=== PATIENT | male | born 1965 | race Caucasian/White ===

== ENCOUNTER 2018-08-06 20:57 | Emergency (ER) | payer OTHER ==
[2018-08-06 21:17] VITALS: BP 128/78
[2018-08-06] MEDS ORDERED: AZITHROMYCIN 250 MG TABLET PO STA (21:23)
--- NOTE | 2018-08-06 21:28 | ED Physician Documentation ---
History of Present Illness - Stated complaint Stated Complaint: ABD PX - Chief complaint Chief Complaint: Abd Pain - History obtained from History obtained from: Patient - History of Present Illness Timing: Today Pain level max: 0 Pain level now: 0 - Additonal information Additional information: states recent travel to [place] + for campylobacter. Treated with cipro 250mg PO BID x 5 days. Diarrhea has returned. No fevers. No blood. Mild abd cramping. Nothing makes it better or worse. Review of Systems Constitutional: denies: Fever, Chills Throat: denies: Sore throat Cardiac: denies: Chest pain / pressure Respiratory: denies: Cough GI: denies: Vomiting, Bloody / black stool Skin: denies: Rash Musculoskeletal: denies: Neck pain, Back pain Neurologic: denies: Headache PD PAST MEDICAL HISTORY - Past Medical History Past Medical History: Yes Cardiovascular: High cholesterol : Retention - Present Medications Home Medications: Ambulatory Orders Medication Instructions Recorded Confirmed Lisinopril 60 mg PO 07/29/18 07/29/18 Rosuvastatin Calcium [Crestor] 20 mg PO 07/29/18 Colchicine 0.6 mg PO 08/06/18 Fenofibrate [Fenoglide] 145 mg PO 08/06/18 Ipratropium [place] 15 ml NS 08/06/18 buPROPion [Wellbutrin Xl] 300 mg PO 08/06/18 - Allergies Allergies/Adverse Reactions: Allergies Allergy/AdvReac Type Severity Reaction Status Date / Time No Known Drug Allergies Allergy Verified 08/06/18 21:04 - Living Situation Living Arrangement: reports: At home - Social History Does the pt smoke?: No Smoking Status: Never smoker Does the pt have substance abuse?: No - Family History Family history: reports: Non contributory PD ED PE NORMAL - Vitals Vital signs reviewed: Yes - General General: Alert and oriented X 3, No acute distress - HEENT HEENT: Moist mucous membranes - Neck Neck: Supple, no meningeal sign - Cardiac Cardiac: RRR, Strong equal pulses - Respiratory Respiratory: No respiratory distress, Clear bilaterally - Abdomen Abdomen: Soft, Non tender, Non distended - Derm Derm: Warm and dry - Neuro Neuro: Alert and oriented X 3 - Psych Psych: Normal mood, Normal affect Results - Vitals Vitals: Vital Signs - 24 hr 08/06/18 21:01 Temperature 36.7 C Heart Rate 93 Respiratory 16 Rate Blood Pressure 128/78 O2 Saturation 97 Oxygen O2 Source Room air PD MEDICAL DECISION MAKING - ED course Complexity details: reviewed old records, considered differential, d/w patient ED course: 52-year-old male with Campylobacter positive diarrhea. Reviewed the drug of choice which appears to be azithromycin at this time. 1 g appears to be equally efficacious to 500 mg for 3 days. Discussed with the patient prefers the 1 g dose. This was given here and will follow up with his doctor as needed. Patient counseled regarding signs and symptoms for which I believe and urgent re-evaluation would be necessary. Patient with good understanding of and agreement to plan and is comfortable going home at this time This document was made in part using voice recognition software. While efforts are made to proofread this document, sound alike and grammatical errors may occur. Departure - Departure Disposition: 01 Home, Self Care Clinical Impression: Campylobacter diarrhea Condition: Good Instructions: Campylobacter Infec Follow-Up: Mahamed Hernandez MD [Primary Care Provider] - Within 1 week Comments: Return if you worsen. The single dose of 1 gram of azithromycin should treat the campylobacter diarrhea.
== END 2018-08-06 21:30 | disposition home or self-care (01) ==
LOC: ED 20:57
DX: A04.5 Campylobacter enteritis (principal); E78.00 Pure hypercholesterolemia, unspecified
CPT/HCPCS: 99283; A9270

== ENCOUNTER 2019-06-22 10:44 | Emergency (ER) | payer OTHER ==
[2019-06-22 10:56] VITALS: BP 144/77
--- NOTE | 2019-06-22 12:26 | ED Physician Documentation ---
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 Had onset of pain left ear upon surfacing and noted some blood from left ear when took hoodie off. Denies vertigo. 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.) Recently seen: Not recently seen Review of Systems Constitutional: denies: Fever, Chills Ears: reports: Loss of hearing, Ear pain (left ear) Nose: denies: Rhinorrhea / runny nose, Congestion, Sinus pressure / pain Throat: denies: Sore throat Neurologic: denies: Focal weakness, Numbness, Headache PD PAST MEDICAL HISTORY - Past Medical History Cardiovascular: Hypertension, High cholesterol Respiratory: None Neuro: None : Retention Musculoskeletal: Gout - Present Medications Home Medications: Ambulatory Orders Medication Instructions Recorded Confirmed Lisinopril 60 mg PO 07/29/18 07/29/18 Rosuvastatin Calcium [Crestor] 20 mg PO 07/29/18 Colchicine 0.6 mg PO 08/06/18 Fenofibrate [Fenoglide] 145 mg PO 08/06/18 Ipratropium [place] 15 ml NS 08/06/18 buPROPion [Wellbutrin Xl] 300 mg PO 08/06/18 Ciprofloxacin HCl 2 drops EACHEAR QID #1 bottle 06/22/19 Ibuprofen [Motrin] 600 mg PO TID PRN #25 tab 06/22/19 - Allergies Allergies/Adverse Reactions: Allergies Allergy/AdvReac Type Severity Reaction Status Date / Time No Known Drug Allergies Allergy Verified 08/06/18 21:04 - Social History Does the pt smoke?: No Smoking Status: Never smoker Does the pt have substance abuse?: No PD ED PE NORMAL - Vitals Vital signs reviewed: Yes - General General: Alert and oriented X 3, No acute distress, Well developed/nourished - HEENT HEENT: PERRL, EOMI (no nystagmus), Moist mucous membranes, Pharynx benign. No: Ears normal (right TM with mild blood behind TM but no perforation. The canal has mild erythema medially. No exudate. The left TM is ruptured centrally and toward 7 o'clock aspect. Canal with some erythema as well. No active bleeding. No FB noted. ) - Neck Neck: Supple, no meningeal sign, No adenopathy - Cardiac Cardiac: RRR, No murmur - Respiratory Respiratory: Clear bilaterally - Derm Derm: Normal color, Warm and dry Results - Vitals Vitals: Vital Signs - 24 hr 06/22/19 10:54 Temperature 36.8 C Heart Rate 73 Respiratory 20 Rate Blood Pressure 144/77 H O2 Saturation 99 Oxygen O2 Source Room air PD MEDICAL DECISION MAKING - ED course Complexity details: considered differential (ruptured TM from barotrauma. 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 Gave Cipro abx as was in ocean water, so concern for infectious possible. He has seen ENT in [place] with prior ruptured TM, and it is easy enough for him to get to appt on "the other side" and so he can call to f/u with ENT.), d/w patient Departure - Departure Disposition: 01 Home, Self Care Clinical Impression: Barotrauma due to diving Ruptured or perforated eardrum Qualifiers: Laterality: left Qualified Code(s): H72.92 - Unspecified perforation of tympanic membrane, left ear Condition: Stable Record reviewed to determine appropriate education?: Yes Instructions: ED Rupture Eardrum Traumatic Follow-Up: Mahamed Hernandez MD [Primary Care Provider] - Prescriptions: Ciprofloxacin HCl 2 drops EACHEAR QID #1 bottle Ibuprofen [Motrin] 600 mg PO TID PRN #25 tab PRN Reason: Pain Comments: Avoid water in the ear. Use the antibiotic drops in both ears 4 times a day for about a week. Use anti-inflammatory such as ibuprofen 3 times a day. To that add Tylenol if needed for pain. I wrote a work note for no underwater activity and no driving until cleared by ear nose and throat when they can see that your eardrum is fully healed. Other activity is okay. Forms: Activity restrictions Discharge Date/Time: 06/22/19 13:24
[2019-06-22] MEDS ORDERED: IBUPROFEN 600 MG TABLET PO STA (12:56)
[2019-06-22] MEDS ORDERED: ACETAMINOPHEN 325 MG TABLET PO STA (12:56)
== END 2019-06-22 13:24 | disposition home or self-care (01) ==
LOC: ED 10:44
DX: T70.0XXA Otitic barotrauma, initial encounter (principal); H72.92 Unspecified perforation of tympanic membrane, left ear; Y93.15 Activity, underwater diving and snorkeling; I10 Essential (primary) hypertension
CPT/HCPCS: 99282; 99283; A9270

== ENCOUNTER 2020-05-09 14:37 | Outpatient (CLI) | payer OTHER | END 2020-05-09 14:38 | disposition home or self-care (01) | LOC: LAB 14:37 | PROVIDERS: ATTEND Physician Assistant | DX: Z01.812 Encounter for preprocedural laboratory examination (principal); Z20.828 Contact with and (suspected) exposure to other viral communicable diseases ==

== ENCOUNTER 2022-06-18 16:58 | Outpatient (CLI) | payer OTHER ==
[2022-06-18 17:20] LABS: BASOPHILS # (AUTO) 0.1 10^3/uL (0.0-0.1); BASOPHILS % (AUTO) 0.9 %; EOSINOPHILS # (AUTO) 0.2 10^3/uL (0.0-0.7); EOSINOPHILS % (AUTO) 3.2 %; HCT - HEMATOCRIT 56.5 % (42.0-52.0); HGB - HEMOGLOBIN 18.7 g/dL (14.0-18.0); LYMPHOCYTES # (AUTO) 1.6 10^3/uL (1.5-3.5); LYMPHOCYTES % (AUTO) 24.8 %; MEAN CORPUSCULAR HEMOGLOBIN 29.3 pg (27.0-31.0); MEAN CORPUSCULAR HGB CONC 33.1 g/dL (32.0-36.0); MEAN CORPUSCULAR VOLUME 88.6 fL (80.0-94.0); MONOCYTES # (AUTO) 0.6 10^3/uL (0.0-1.0); MONOCYTES % (AUTO) 9.3 %; NEUTROPHILS % (AUTO) 61.3 %; PLT - PLATELET COUNT 259 10^3/uL (130-450); RED BLOOD COUNT 6.38 10^6/uL (4.70-6.10); RED CELL DISTRIBUTION WIDTH 12.9 % (12.0-15.0); WHITE BLOOD COUNT 6.5 x10^3/uL (4.8-10.8)
[2022-06-18 17:53] LABS: % IRON SATURATION 12 % (20-50); IRON 57 ug/dL (45-182); TOTAL IRON BINDING CAPACITY 456 ug/dL (250-450); TRANSFERRIN 326 mg/dL (180-329)
== END 2022-06-18 16:59 | disposition home or self-care (01) ==
LOC: LAB 16:58
PROVIDERS: ATTEND Internal Medicine Hematology & Oncology
DX: D75.1 Secondary polycythemia (principal)
CPT/HCPCS: 36415; 82668; 82728; 83540; 84403; 84466; 85025

== ENCOUNTER 2024-01-29 11:43 | Outpatient (CLI) | payer OTHER ==
--- NOTE | 2024-01-29 14:12 | XRAY Report ---
PROCEDURE: Toe(s) 2+V LT INDICATIONS: PAININ LEFT BIG TOE TECHNIQUE: 3 views of the first toe(s) acquired. COMPARISON: None. FINDINGS: Bones: Linear calcification is present adjacent to the base of the first distal phalanx. No suspiciou s bony lesions. Soft tissues: No suspicious soft tissue densities. IMPRESSION: Small avulsion versus dystrophic osteophyte at the base of the distal first phalanx. Reviewed by: Christy Aldana MD on 01/29/2024 2:10 PM PDT Approved by: Christy Aldana MD on 01/29/2024 2:10 PM PDT Station ID: [id number]
== END 2024-01-29 11:44 | disposition home or self-care (01) ==
LOC: DI 11:43
PROVIDERS: ATTEND Physician Assistant
DX: M79.675 Pain in left toe(s) (principal); R93.6 Abnormal findings on diagnostic imaging of limbs
CPT/HCPCS: 73660